=== PATIENT | female | born 1995 | race Caucasian/White ===

== ENCOUNTER → 2022-08-24 16:19 | Outpatient (CLI) | payer OTHER, SELFPAY ==
--- NOTE | 2022-08-24 16:25 | DI.US.S_ITS ---
PROCEDURE: US OB >= 14 WEEKS FETUS INDICATIONS: ANATOMY SCAN OUTSIDE/PRIOR DATING DATA: Last menstrual period (LMP): 04/05/2022. LMP-based estimated date of delivery (DAVIE): 01/10/2023. First dating scan (date and location): 06/21/2022. Estimated date of delivery (DAVIE) from first dating scan: 01/10/2023. The calculations are made using the ultrasound DAVIE of 01/10/2023. TECHNIQUE: Real-time scanning was performed of the fetus, with image documentation and biometric measurements. COMPARISON: [facility], , US OB < 14 WEEKS, 06/21/2022, 16:32. FINDINGS: General: A single living intrauterine gestation is present. Presentation: Cephalic. Placenta: Placental position is anterior, without previa. Amniotic fluid index: 14.7 cm, normal range is 5-24 cm. Single deepest vertical pocket is 4.4 cm. heart rate: 140 beats per minute. Maternal cervical canal: 3.2 cm long. Normal lower limit is 2.5 cm. biometrics: Biparietal diameter: 5.2 cm, 21 weeks 5 days Head circumference: 19.3 cm, 21 weeks 4 days Abdominal circumference: 15.7 cm, 20 weeks 6 days Femur length: 3.4 cm, 20 weeks 6 days Clinically estimated gestational age: 20 weeks 1 day Composite gestational age from present scan: 21 weeks 2 days Estimated weight and percentile: 388 g, 87th percentile Anatomic survey: Neuro: Ventricles are non-dilated at less than 10 mm. Cisterna magna is normal at 3-11 mm. Cerebellum is normal in size and morphology. Nuchal skin fold: Normal at less than 6 mm between 14-21 weeks gestational age. Face: Nose and lips, facial profile are normal. Spine: No evidence for spina bifida. Heart: 4-chambered heart is present, with normal ventricular outflow tracts. Diaphragm: Diaphragm is intact. Stomach: Left-sided stomach is present. Kidneys: No hydronephrosis. Normal is less than 5 mm in 2nd trimester, less than 7 mm in 3rd trimester. Cord: 3-vessel cord has orthotopic insertion. Bladder: Normal in size. Extremities: All 4 extremities identified. IMPRESSION: 1. Farfan living intrauterine at 21 weeks 2 days based on today's ultrasound. Fetus is in the 87th percentile for weight 2. Normal placenta and amniotic fluid. 3. Normal and complete anatomic survey. We strive to produce accurate, complete, and clear reports of imaging services. To assist us in improving patient care, this report was composed using standard report templates and voice recognition software. Therefore, it may contain abnormal punctuation, insertions and/or omissions. Occasional wrong-word or sound-alike substitutions may occur. Though we review the report and make efforts to correct it, we do recommend that the report be read carefully in proper context to recognize any text inaccuracies. Dictated by: Edward Tracy M.D. on 08/25/2022 at 13:09 Approved by: Edward Tracy M.D. on 08/25/2022 at 13:14
== END ==
PROVIDERS: Referring Provider Advanced Practice Midwife; Visit Provider Advanced Practice Midwife
DX: Z36.89 Encounter for other specified antenatal screening (principal); Z3A.21 21 weeks gestation of pregnancy
CPT/HCPCS: 76811

== ENCOUNTER → 2022-10-07 08:23 | Outpatient (CLI) | payer OTHER, SELFPAY ==
[2022-10-07 09:30] LABS: Hematocrit 33.3 % (36-46); Hemoglobin 11.5 g/dL (12.0-16.0); Mean Corpuscular HGB Conc 34.4 % (30-36); Mean Corpuscular Hemoglobin 31.6 PG (26-34); Mean Corpuscular Volume 91.8 fL (80-100); Platelet Count 246 X10^3/uL (150-400); Red Blood Cell Count 3.63 X10^6/uL (4.0-5.2); Red Cell Distribution Width 12.7 % (11.6-14.8); White Blood Cell Count 11.8 X10^3/uL (4.5-11.0)
[2022-10-07 09:45] LABS: Glucose Fasting 76 mg/dL (70-100)
[2022-10-07 10:48] LABS: Glucose 1 Hour 140 mg/dL (70-170)
[2022-10-07 11:04] LABS: Glucose Tol Interpretation INTERPRETATION
[2022-10-07 12:14] LABS: Glucose 2 Hour 130 mg/dL (70-140)
== END ==
PROVIDERS: Referring Provider Nurse Practitioner Obstetrics & Gynecology; Visit Provider Nurse Practitioner Obstetrics & Gynecology
DX: Z34.90 Encounter for supervision of normal pregnancy, unspecified, unspecified trimester (principal); Z13.1 Encounter for screening for diabetes mellitus; Z3A.26 26 weeks gestation of pregnancy
CPT/HCPCS: 36415; 82951; 82952; 85027

== ENCOUNTER 2023-01-09 11:50 | Outpatient (CLI) | payer OTHER, SELFPAY ==
--- NOTE | 2023-01-09 12:41 | PM.OBTRLD ---
Visit Information Visit Information Date of evaluation: 01/09/23 Primary OB Provider: Merna Roberson On-call OB Provider: Merna Roberson Reason for Evaluation: Yes rupture of membranes Comments/Additional reasons for admission: 27YO @ 39wks 6 days here for evaluation for possible rupture of membranes. Has been noticing small amounts of leaking fluid since yesterday. Feeling lots of movement and occasional mild cramping, nothing regular. No vaginal bleeding. Uncomplicated care with CNMs. Vital Signs Vital Signs: BP 128/78, HR 66bpm, T 37.2C Temporal PFSH Medical History Asthma PCOS (polycystic ovarian syndrome) Social History (Updated 01/12/23 @ 07:36 by Merna Roberson CNM) marital status: household members: spouse lives independently: Yes housing: house education level: college Review of Systems Review of Systems ROS: Yes All systems reviewed with the patient and are negative except as otherwise documented Exam Vital Signs (past 8 hours): see above Presentation: vertex Amniotic Fluid: no fluid Evaluation Evaluation Baseline heart rate: 130 Variability: Moderate (11-25) monitor accelerations: Present Monitor Decelerations: Absent Contraction Frequency (minutes): 4 Uterine Contraction Intensity: Mild Category of Tracing: Reactive Non-invasive Membranes Rupture Test: negative Comments: CE deferred Diagnosis, Plan/Disposition Final Diagnosis (1) Amniotic cavity/membrane problem suspected but not found: Status: Acute Plan/Disposition Plan: Discharge to home with routine precautions. OB Disposition: home
== END 2023-01-09 12:45 | disposition home or self-care (01) ==
LOC: LABOR 12:27 → OB 01-12 07:40
PROVIDERS: Referring Provider Nurse Practitioner Obstetrics & Gynecology; Visit Provider Nurse Practitioner Obstetrics & Gynecology
DX: Z03.71 Encounter for suspected problem with amniotic cavity and membrane ruled out (principal); Z3A.39 39 weeks gestation of pregnancy
CPT/HCPCS: 59025; 84112; G0378; G0379

== ENCOUNTER 2023-01-14 20:41 | Inpatient (IN) | payer OTHER, SELFPAY ==
--- NOTE | 2023-01-14 20:58 | PM.OBHP.1 ---
OB HPI Date/Time Date of admission: 01/14/23 Date Patient Seen: 01/14/23 Time Patient Seen: 20:55 History of Present Condition Chief complaint: OB : 1 Para: 0 Estimated Date of Delivery: 01/10/23 Estimated Gestational Age (weeks): 40.4 Narrative: Aydin Jimenez is a 27 year old female @ 55olh6bpom by LMP concordant with 8wk US who presents for evaluation of labor. Contractions started at 2pm and have steadily progressed in frequency and intensity. Now breathing through strong contractions every 5 minutes with occasional bloody mucus when she wipes. +FM. No leaking of fluid. Uncomplicated care with CNM. Desires low intervention . is present and supportive. History of Present care: good care, initiated at week # (8), number of visits (9) and pounds weight gain (35) Dating criteria: LMP confirmed by 1st trimester US Ultrasounds: normal 1st trimester US and normal mid trimester US Obstetrical complications: none Medical complications: none Narrative: on metformin for PCOS, conceived with Clomid Preadmission Labs Blood type: A (+) positive -: Antibody screen: negative, GBS status: positive, HBsAG: negative, HIV: negative and RPR/VDLR: negative -: Chlamydia screen: not detected and Gonorrhea screen: not detected -: Rubella: immune and Varicella: not immune HCT: 33.3 HCAB: negative Narrative: 2hr gtt: 76, 140, 130 Evaluation Evaluation Baseline heart rate: 135 Variability: Moderate (11-25) monitor accelerations: Present Monitor Decelerations: Absent Contraction Frequency (minutes): 5 Uterine Contraction Intensity: Moderate Status: Category l Dilation (cm): 4 Effacement (%): 80 Dilation: 3-4 cm Effacement: >/=80% station: -2 Position of cervix: posterior Consistency: soft Patel score: 8 PFSH Medical History Asthma PCOS (polycystic ovarian syndrome) Social History marital status: household members: spouse lives independently: Yes housing: house education level: college Smoking Status: Never smoker Meds Home Medications and Allergies Home Medications Medication Instructions Recorded Confirmed Type metformin 500 mg tablet,extended 500 mg PO DAILY 01/14/23 01/14/23 History release 24 hr Allergies Allergy/AdvReac Type Severity Reaction Status Date / Time No Known Drug Allergies Allergy Unverified 01/14/23 21:08 Review of Systems Review of Systems ROS: Yes All systems reviewed with the patient and are negative except as otherwise documented OB Exam Vital signs Blood Pressure: 137/86 Pulse Rate: 70 Temperature: 97.9 F Resp Effort & Inspection: normal respiratory effort and able to speak in complete sentences Auscultation: clear to auscultation bilaterally Cardio Rate: regular rate Rhythm: regular rhythm Heart Sounds: S1 normal and S2 normal Objective Labs 01/14/23 21:00 Assessment and Plan Assessment and Plan Assessment and Plan narrative: A: Term nullipara Approaching active labor GBS prophylaxis indicated Cat I FHR P: Admit, routine orders with ampicillin for GBS to start in 1-2 hours. May switch to intermittent auscultation. Labor support PRN. Reassess in 4 hours or sooner, PRN.
[2023-01-14 21:11] VITALS: BP 137/86; PULSE 70; TEMP 36.6
[2023-01-14 21:20] LABS: Add Manual Diff / Slide Review NO; Basophils Absolute Auto 100 /uL (0-100); Basophils Percent Auto 0.6 % (0-2); Eosinophils Absolute Auto 200 /uL (0-450); Eosinophils Percent Auto 1.6 % (2-4); Hematocrit 36.2 % (36-46); Hemoglobin 12.5 g/dL (12.0-16.0); Lymphocytes Absolute Auto 1700 /uL (1100-4500); Lymphocytes Percent Auto 14.7 % (25-40); Mean Corpuscular HGB Conc 34.5 % (30-36); Mean Corpuscular Hemoglobin 31.6 PG (26-34); Mean Corpuscular Volume 91.8 fL (80-100); Monocytes Absolute Auto 1100 /uL (0-900); Monocytes Percent Auto 9.5 % (3-14); Neutrophils Absolute Auto 8700 /uL (1500-7000); Neutrophils Percent Auto 73.6 % (50-75); Platelet Count 236 X10^3/uL (150-400); Red Blood Cell Count 3.94 X10^6/uL (4.0-5.2); Red Cell Distribution Width 12.9 % (11.6-14.8); White Blood Cell Count 11.9 X10^3/uL (4.5-11.0)
[2023-01-14 21:57] VITALS: BP 137/86
[2023-01-14] MEDS: LACTATED RINGERS 1,000 ML 100 ML IV (23:18)
[2023-01-14] MEDS: AMPICILLIN 2,000 MG in SODIUM CHLORIDE 0.9% 100 ML 200 MG IV (23:18)
--- NOTE | 2023-01-15 02:13 | PM.OBPNLAB ---
Date/Time Date Patient Seen: 01/15/23 Time Patient Seen: 03:00 Pain Control Pain control: tolerating well Comments: Offered cervical exam at 0200, but patient declined at that time. Consents now. Changing positions frequently. Feeling stronger contractions every 4-5 minutes. No leaking of fluid. VS not yet repeated from admission. Pelvic Exam Dilation (cm): 6 Effacement (%): 80 station: -1 Contractions Monitor mode: Palpation Pitocin rate (mU/min): 0 Contraction frequency (min): 5 Contraction duration (min): 1 Contraction pattern: Regular Contraction intensity: Moderate Status Heart Rate Baseline: 135 Comments: FHTs reassuring by intermittent auscultation Assessment and Plan Assessment: active labor Plan: continuous present management Comments: Continue expectant management of labor. Reassess in 4 hours or sooner, PRN.
[2023-01-15] MEDS: AMPICILLIN 1,000 MG in SODIUM CHLORIDE 0.9% 100 ML 200 MG IV ×3 (03:44→11:46)
--- NOTE | 2023-01-15 06:51 | PM.OBPNLAB ---
Date/Time Date Patient Seen: 01/15/23 Time Patient Seen: 06:45 Pain Control Pain control: other (NO2, initiated at 0530, rare use) Comments: Continues to labor well, mostly sitting up in bed. Feeling more pressure down low, no urge to push. Partner is supportive at her side. VS: BP 120/79, HR 75bpm, T 36.4C Temporal Pelvic Exam Dilation (cm): 9 Effacement (%): 100 station: 0 Amniotic membrane status: Intact Contractions Contractions on admission: regular Monitor mode: External Pitocin rate (mU/min): 0 Contraction frequency (min): 5 Contraction duration (min): 1 Contraction pattern: Irregular Contraction intensity: Strong/Firm Status status: Category l Heart Rate Baseline: 135 Monitor Accelerations: Present Monitor Decelerations: Early Monitor Variability: Moderate Assessment and Plan Assessment: active labor Plan: continuous present management Comments: Continue expectant management of labor. Continuous labor support. Anticipate second stage soon.
--- NOTE | 2023-01-15 11:38 | PM.OBPNLAB ---
Date/Time Date Patient Seen: 01/15/23 Time Patient Seen: 11:38 Pain Control Pain control: tolerating well Comments: Sitting on the toilet, moaning and occasionally bearing down with contractions. Not yet feeling a strong urge to push. Continues to leak clear fluid. Feeling tired and frustrated. Has walked and changed positions to help move things along. Declines pitocin augmentation. Partner, Maxwel, CNM and SNM providing continuous labor support. 4th dose of antibiotic initiated. VS: BP 115/73, HR 82bpm, RR 16, T 36.2C Temporal Pelvic Exam Dilation (cm): 10 Effacement (%): 100 station: +1 Amniotic membrane status: Intact Comments: CE was at 1055 Contractions Monitor mode: Palpation Contraction frequency (min): 5 Contraction duration (min): 1 Contraction pattern: Regular Contraction intensity: Strong/Firm Status Heart Rate Baseline: 130 Comments: reassuring by intermittent auscultation Assessment and Plan Assessment: active labor (slow) Plan: continuous present management Comments: Continue expectant management with movement. Anticipate active pushing soon.
--- NOTE | 2023-01-15 13:22 | PM.OBPNLAB ---
Date/Time Date Patient Seen: 01/15/23 Time Patient Seen: 13:22 Pain Control Pain control: other (NO2) Comments: Has been pushing since 1055 with minimal change in station. AROM of forebag performed at 1255. counsele don LOP position and recommend manual rotation. Patient declines. Encouraged her to get an epidural for pain relief an analgesia prior to additional interventions (pitocin and/or manual rotation). Patient declines and is requesting a primary . Pelvic Exam Dilation (cm): 10 Effacement (%): 100 station: +1 Amniotic membrane status: Leaking (clear fluid (SROM @ 0730)) Comments: LOP position Contractions Monitor mode: Palpation Contraction frequency (min): 5 Contraction duration (min): 1 Contraction pattern: Regular Contraction intensity: Strong/Firm Status Comments: FHR remains reassuring by intermittent auscultation Assessment and Plan Assessment: active labor Plan: Comments: Called OB back-up/ and consulted for a NONurgent primary . Anesthesia and OR crew notified.
--- NOTE | 2023-01-15 13:48 | PM.PREOP ---
Pre-operative Note COVID-19 Criteria for continued procedure: Deterioration of the patient's condition or overall health Interval Note History & Physical reviewed/Exam performed by Physician: Yes Changes to H&P: No H&P completed within 30 days and has changed as indicated here:: Second-stage arrest
--- NOTE | 2023-01-15 13:50 | PM.CN ---
History of Present Illness Consult details Date Patient Seen: 01/15/23 Time Patient Seen: 13:50 Chief complaint: OB Reason for consult: Second-stage arrest consult for section Requesting provider: Merna Roberson Narrative: Patient is a 27-year-old admitted in active labor. She progressed in labor and had spontaneous rupture membranes. heart tones reassuring throughout labor. Patient progressed to complete and pushing. After 2 hours of pushing the baby in the OP position had no significant descent. Patient was given options by her membership sales advisor and the patient is requesting section. Patient is group B strep positive and has received multiple doses ampicillin IV q.4 hours. Patient's uncomplicated. She did take metformin through the which she had started on prior to for PCOS. No other medical problems. No other complications through the . Patient's blood type is A positive. Meds Home Medications and Allergies Home Medications Medication Instructions Recorded Confirmed Type metformin 500 mg tablet,extended 500 mg PO DAILY 01/14/23 01/14/23 History release 24 hr Allergies Allergy/AdvReac Type Severity Reaction Status Date / Time No Known Drug Allergies Allergy Unverified 01/14/23 21:08 Review of Systems Review of Systems Narrative: Patient is currently using nitrous oxide for pain. Exam Vital Signs (past 8 hours): Blood pressure 135/65, pulse of 88, temperature 36.6? Narrative Exam Narrative: HEENT exam within normal limits. Lungs are clear to auscultation percussion. Heart is regular rate and rhythm no S3-S4 murmurs. Abdomen is gravid. Fetus is vertex. Objective Labs 01/14/23 21:00 Labs: Laboratory Results - last 24 hr 01/14/23 01/14/23 21:00 21:00 WBC 11.9 H RBC 3.94 L Hgb 12.5 Hct 36.2 MCV 91.8 MCH 31.6 MCHC 34.5 RDW 12.9 Plt Count 236 Neut % (Auto) 73.6 Lymph % (Auto) 14.7 L Hernando % (Auto) 9.5 Eos % (Auto) 1.6 L Baso % (Auto) 0.6 Neut # (Auto) 8700 H Lymph # (Auto) 1700 [place] # (Auto) 1100 H Eos # (Auto) 200 Baso # (Auto) 100 Blood Type A Positive Antibody Screen Negative [facility] Medical History Asthma PCOS (polycystic ovarian syndrome) Social History marital status: household members: spouse lives independently: Yes housing: house education level: college Tobacco & Substance Use Smoking Status: Never smoker Assessment & Plan Assessment and plan (1) Failure of descent in labor, delivered, current hospitalization: Status: Acute (2) 40 weeks gestation of : Status: Acute Assessment & Plan narrative: Second-stage arrest of fetus. Patient is requesting section. The procedure was discussed with the patient and . Consent form reviewed. Risks are minimal including reaction to medication or anesthesia, damage to internal structures such as bowel, bladder, ureters that could require additional surgery to repair, risk of infection, risk of bleeding enough to require blood transfusion which she is agreeable to. Consent form signed and questions answered.
[2023-01-15] MEDS: CITRIC ACID/SODIUM CITRATE 15 ML SOLUTION 30 ML PO (14:00)
[2023-01-15] MEDS: AZITHROMYCIN 500 MG in DEXTROSE 5% IN WATER 250 ML 250 MG IV (14:01)
[2023-01-15] MEDS: CEFAZOLIN 2 GM/100 ML PREMIX 100 ML IV (14:20)
--- NOTE | 2023-01-15 14:40 | SUR.OPER ---
viable male infant delivered at 1440. cord blood and placenta to ob with rn
--- NOTE | 2023-01-15 14:59 | PM.PROC.1 ---
Procedures Date/Time Date of procedure: 01/15/23 Time of procedure: 14:59 General Procedure description: Technology Education Teacher Documentation I assisted the OB propulsion machinery service engineer in the section for this patient. My responsibilities included retracting and suctioning, providing fundal pressure during delivery and following with suture during closure. Please see the OB's note for details of the surgery.
[2023-01-15 15:26] VITALS: BP 102/51; PULSE 97; RESP 12; TEMP 36.6; O2SAT 99
[2023-01-15 15:29] VITALS: BP 124/39; PULSE 89; RESP 14; O2SAT 100
--- NOTE | 2023-01-15 15:30 | P.OP_ITS ---
Operative Date/Time/Diagnoses Date of procedure: 01/15/23 Time of procedure: 15:30 Pre-op diagnosis: Second-stage arrest Post-op diagnosis: same Procedure & Clinicians Procedure: Primary low-transverse section Same procedure as scheduled: Yes Indications: Second-stage arrest Surgeon: Anitha Blount Oracle Programmer: Merna Roberson Anesthesia Type: Spinal Operative Notes Findings: Normal tubes, ovaries, uterus. Viable male . Closure Type: primary Specimen(s): cord blood Intraoperative meds administered: Pitocin Applied: Catheter (Cornejo) Estimated Blood Loss (mL): 550 Blood products transfused: none Procedure in detail: The patient was brought to the operating room where she underwent a spinal for anesthesia. She was placed in a supine position with a left lateral tilt. A Cornejo catheter was placed. Pulsatile stockings were placed and functional throughout the case. 2 g of Ancef and 500 mg of Zithromycin were given IV prior to the incision. Warming was in place. The patient was prepped and draped in usual sterile fashion. A low transverse incision was made with a scalpel and the incision was carried down to the fascial layer which was incised transversely with scissors. The employee relations assistant did her side of the incision. The midline attachments are superiorly and inferiorly. Some bleeding was controlled Bovie. The rectus muscles were in the midline and the peritoneal incision was made with no damage to internal structures. The peritoneum was incised and superiorly and inferiorly. The incision was stretched with the surgeon and employee relations assistant placing traction. Bladder blade was placed and a bladder flap was developed and the bladder held away from the lower uterine segment. An incision was made in the uterus with the scalpel and the incision was extended with stretching. The head was elevated out of the abdomen and with fundal pressure by the employee relations assistant the baby was delivered. The was bulb suctioned for clear fluid and handed off to the warmer. Cord blood was collected. The placenta delivered spontaneously with traction. The uterus was cleaned with clean laps. The uterine incision was closed in 2 layers of 0 chromic suture the first a running locking layer the second an imbricating layer. The employee relations assistant was helping to expose the incision. The bladder peritoneum was repaired with 2-0 Vicryl suture. The gutters were cleaned of any remaining fluids and ovaries and tubes were observed to be normal. Adequate hemostasis was noted. The perineum was closed with 2-0 Vicryl suture. The fascia layer was closed with 0 Vicryl suture with 2 stitches. The employee relations assistant repairing half the incision with helping to retract and expose the incision for the other half. The incision was irrigated and adequate hemostasis noted. The incision was closed with interrupted 3-0 Vicryl sutures and then a subcuticular stitch of 4-0 Vicryl suture. Steri-Strips were placed. The uterus was massaged to remove any clots. The patient went to recovery room in good condition. Counts of instruments and sponges were correct. Merna Roberson CNM was present throughout the case to assist with retraction, fundal pressure to deliver the , and suturing half the fascia. [place] Baby 1: Gender: Male Presentation: vertex Position: Occiput Posterior Placental Delivery Description: Expressed Cord Vessel Description: 3 Vessels score (1 min): 8 score (5 min): 9 weight: 9 lb 3 oz Post-operative Condition: stable Disposition: other ( Center) Aftercare: routine postop
--- NOTE | 2023-01-15 15:31 | PM.PNB.1 ---
Peripheral Nerve Block Note Pre-Procedure Reason for block: Attending surgeon request/order for post-op pain management Pre-procedure checklist: Patient examined and chart reviewed, Risks, benefits, alternatives of block discussed, questions answered, Verification of anti-coagulation status, Site confirmed, Timeout performed and Standard ASA monitors applied Consent obtained from: Patient Procedure Date of procedure: 01/15/23 Start Time: 14:21 End Time: 14:25 Performed by: Sharda Nobles Location: Intra-Op Position: Sitting Laterality: Bilateral Sterile Technique: Sterile barrier maintained, Sterile gloves, Mask, Sterile drapes and Chloraprep Skin Wheal: Lidocaine 1% mL: 2 Gauge: 5 Equipment Single injection - Needle brand, gauge, length: 25g beau spinal needle 3.5 inches Medications Medications - enter concentration (%) & mL in comment field: Bupivacaine (0.75% with dextrose 8.25% 1.6ml) and Other (Fentanyl 20 mcg, Duramorph 0.2 mg) Vital signs VS: - 01/15/23 15:26 Temperature 97.9 F Pulse Rate 97 H Respiratory Rate 12 Blood Pressure 102/51 L Pulse Oximetry 99 Oxygen Delivery Method Room Air Oxygen Delivery Method Room Air Events Nerve Block Events: Procedure uneventful, Paresthesia (left leg fleeting paresthesia immediately subsided and spinal needle redirected.) and Other (#20g introducer then spinal needle times one and redirected after paresthesia and +CSF with no blood and injected over 1 min with barbotage. [place] removed intact. Patient supine with DREW and level established.)
[2023-01-15] MEDS: LACTATED RINGERS 1,000 ML 42 ML IV ×3 (15:35→18:43)
[2023-01-15] MEDS: KETOROLAC 30 MG/ML VIAL IV ×2 (15:45→22:17)
[2023-01-16 00:02] VITALS: BP 113/63; PULSE 74; RESP 16; TEMP 36.8
[2023-01-16] MEDS: KETOROLAC 30 MG/ML VIAL IV ×2 (04:35→10:29)
--- NOTE | 2023-01-16 09:15 | PM.OBPN.1 ---
Subjective - OB Subjective Patient comments: no complaints and pain well controlled baby status: doing well and nursing well feeding status: exclusively breast feeding Date Patient Seen: 01/16/23 Time Patient Seen: 08:00 Interval history: Post section day 1. Patient denies pain. She is tolerating regular diet. She is breast-feeding without difficulty. No concerns. Exam Vital Signs (past 8 hours): Blood pressure 109/65, pulse 74, temperature 98.5? Oxygen Delivery Method Room Air Narrative Exam Narrative: Patient's abdomen is soft, nontender. Uterus is firm, U-1, nontender. Dressing is clean, dry, intact. Mild lochia. Extremities without edema and nontender. Objective Labs 01/14/23 21:00 Assessment & Plan Assessment and Plan (1) Failure of descent in labor, delivered, current hospitalization: Status: Acute (2) 40 weeks gestation of : Status: Acute Plan day: 1 plan OB: routine postop care Comments: Cornejo catheter will be removed. Time Spent With Patient Time: Total time spent is greater than 50% in coordination of care (as documented) at patient's floor/unit and/or counseling patient: Time with patient: less than 15 minutes
[2023-01-16] MEDS: DOCUSATE 100 MG CAPSULE PO (10:29)
[2023-01-16] MEDS: PRENATAL VIT,CALC/IRON/FOLIC 1 TABLET 1 TAB PO (10:29)
[2023-01-16 16:10] LABS: Add Manual Diff / Slide Review NO; Basophils Absolute Auto 0 /uL (0-100); Basophils Percent Auto 0.3 % (0-2); Eosinophils Absolute Auto 300 /uL (0-450); Eosinophils Percent Auto 1.9 % (2-4); Hematocrit 30.2 % (36-46); Hemoglobin 10.4 g/dL (12.0-16.0); Lymphocytes Absolute Auto 1500 /uL (1100-4500); Lymphocytes Percent Auto 11.2 % (25-40); Mean Corpuscular HGB Conc 34.5 % (30-36); Mean Corpuscular Hemoglobin 31.8 PG (26-34); Mean Corpuscular Volume 92.3 fL (80-100); Monocytes Absolute Auto 1000 /uL (0-900); Monocytes Percent Auto 7.7 % (3-14); Neutrophils Absolute Auto 10600 /uL (1500-7000); Neutrophils Percent Auto 78.9 % (50-75); Platelet Count 202 X10^3/uL (150-400); Red Blood Cell Count 3.28 X10^6/uL (4.0-5.2); Red Cell Distribution Width 12.9 % (11.6-14.8); White Blood Cell Count 13.4 X10^3/uL (4.5-11.0)
[2023-01-16] MEDS: IBUPROFEN 600 MG TABLET PO ×2 (16:21→22:10)
[2023-01-16] MEDS: ACETAMINOPHEN 325 MG TABLET 650 MG PO (20:41)
[2023-01-17] MEDS: ACETAMINOPHEN 325 MG TABLET 650 MG PO ×2 (02:45→08:30)
[2023-01-17] MEDS: IBUPROFEN 600 MG TABLET PO ×2 (04:45→10:28)
[2023-01-17] MEDS: PRENATAL VIT,CALC/IRON/FOLIC 1 TABLET 1 TAB PO (08:30)
[2023-01-17] MEDS: DOCUSATE 100 MG CAPSULE PO (08:30)
--- NOTE | 2023-01-17 11:47 | PM.OBDS.1 ---
Discharge Providers Provider Date of admission: 01/14/23 20:41 Discharge Date: 01/17/23 Consults: 01/15/23 16:02 Consult to Clerical Adjuster Routine Comment: Discharge provider: Anitha Blount MD Summary Hospital Course Date Patient Seen: 01/17/23 Time Patient Seen: 11:47 Diagnoses: 40 week gestation, second-stage arrest, post up anemia Hospital Course: Patient arrived on Labor and delivery on 01/14/2023 in early labor. She progress to complete and pushing. She received IV ampicillin for positive group B strep culture. She had a second-stage arrest and underwent a primary low-transverse section to deliver a 9 lb 3 oz boy. Post operative the patient is urinating well, passing gas, ambulatory, pain is under control, she is and currently getting help with regional engagement consultant. Peripartum Data Infant Delivery Method: Section (Second-stage arrest) Procedures: Primary low-transverse section complications: none 1: Gender: Male Disposition of : home Discharge Diagnosis (1) Failure of descent in labor, delivered, current hospitalization: Status: Acute (2) 40 weeks gestation of : Status: Acute (3) Acute blood loss as cause of postoperative anemia: Status: Acute Status at Discharge Cognitive/behavioral status at discharge: oriented Functional status at discharge: independent ambulation Overall status at discharge: patient is progressing back to baseline Time Spent with Patient Time attestation: Total time spent providing and/or coordinating discharge services: Time spent: Less than 30 minutes Objective Labs 01/16/23 15:25 Labs: Laboratory Results - last 24 hr 01/16/23 15:25 WBC 13.4 H RBC 3.28 L Hgb 10.4 L Hct 30.2 L MCV 92.3 MCH 31.8 MCHC 34.5 RDW 12.9 Plt Count 202 Neut % (Auto) 78.9 H Lymph % (Auto) 11.2 L Ware % (Auto) 7.7 Eos % (Auto) 1.9 L Baso % (Auto) 0.3 Neut # (Auto) 30855 H Lymph # (Auto) 1500 Ware # (Auto) 1000 H Eos # (Auto) 300 Baso # (Auto) 0 Exam Vital Signs (past 8 hours): Blood pressure 113/63, pulse 74, temperature 98.2? Oxygen Delivery Method Room Air Narrative Exam Narrative: Abdomen is soft, nontender. Uterus is firm, at U, nontender. Dressing is clean, dry, intact. Mild lochia. Extremities without edema and nontender. Discharge Plan Discharge Plan Patient Disposition: Home Discharge orders & Medications Prescriptions: New ibuprofen 600 mg Tablet 600 mg PO Q6H Qty: 30 0RF oxycodone 5 mg Tablet 5 mg PO Q4H PRN (Reason: Pain, Moderate (4-6)) Qty: 20 0RF ferrous gluconate 324 mg (37.5 mg iron) tablet 324 mg PO DAILY Qty: 30 0RF Continued metformin 500 mg tablet extended release 24 hr 500 mg PO DAILY Follow up/Referrals: Anitha Blount MD [Physician] - 1 Week (Incision check) Merna Roberson CNM [Advanced Tester Regulator] - (Follow-up with on January at 11:45 AM Follow-up phone call 01/27/23 @ 10:15am Follow-up in office 02/27/23 @ 10:30am) Diet/Activity/Treatments Diet: Regular Activity: Nothing in vagina or lifting over 10 lb for 6 weeks Skin/Wound/Dressing Care Report to your healthcare provider any signs of infection, such as:: chills, fever and increased pain Visit Report/Discharge Packet Instructions: DI for , DI for Prescription Opioid Use Stand Alone Forms: Patient Portal/API
== END 2023-01-17 14:30 | disposition home or self-care (01) | DRG 787 ==
PROVIDERS: Specialist; Admitting Provider Nurse Practitioner Obstetrics & Gynecology; Referring Provider Nurse Practitioner Obstetrics & Gynecology; Visit Provider Nurse Practitioner Obstetrics & Gynecology
PROC: (CPT 59514; principal; 2023-01-15 14:15)
DX: O62.1 Secondary uterine inertia (principal); D62 Acute posthemorrhagic anemia; Z3A.40 40 weeks gestation of pregnancy; O90.81 Anemia of the puerperium; Z37.0 Single live birth; O99.824 Streptococcus B carrier state complicating childbirth
CPT/HCPCS: 36415; 59050; 59514; 85025; 86850; 86900; 86901; 99233; 99238; G0379; J0290; J0690; J1885; J2274; J3010